=== PATIENT | male | born 1980 | race Caucasian/White ===

== ENCOUNTER 2017-03-14 20:29 | Emergency (ER) | payer OTHER ==
[~2017-03-14] VITALS: Ht 177.8 cm; Wt 96.7 kg
[2017-03-14 23:31] LABS: HEMATOCRIT 43.3 % (38.0-50.0); MCH 31.2 PG (29.0-34.0); MCHC 34.2 G/DL (30.0-36.0); MCV 91.2 FL (86-99); MEAN PLAT.VOLUME 9.7 uM^3 (9.0-12.4); PLATELET COUNT 306 K/uL (156-360); RBC DIS.WIDTH-CV 13.1 % (11.8-14.6); RBC DIS.WIDTH-SD 44.4 % (39-53); RED BLOOD COUNT 4.75 M/uL (4.00-5.50); WHITE BLOOD COUNT 14.7 K/uL (4.1-10.2)
[2017-03-14 23:42] LABS: CHLORIDE 102 mEq/L (99-109); POTASSIUM 3.6 mEq/L (3.7-5.4); SODIUM 135 mEq/L (136-147)
[2017-03-14 23:44] LABS: GLUCOSE 114 mg/dL (70-99)
[2017-03-14 23:45] LABS: ANION GAP 10 MEQ/L (2-14)
[2017-03-14 23:48] LABS: GFR ESTIMATE (CALCULATED) > 59 mL/min/; UREA NITROGEN (BUN) 17 mg/dL (9-23)
[2017-03-15] MEDS ORDERED: EPIPEN ADU0.3 MG/0.3 IM (00:40)
[2017-03-15] MEDS ORDERED: PREDNISONE10 MG PO (00:40)
[2017-03-15] MEDS ORDERED: BENADRYL50 MG PO (00:41)
[2017-03-15 00:54] VITALS: BP 112/58
== END 2017-03-15 00:56 | disposition home or self-care (01) ==
LOC: RME 20:29 → EME 20:29 → RME 03-15 00:56
PROVIDERS: Physician Assistant
DX: T63.441A Toxic effect of venom of bees, accidental (unintentional), initial encounter (principal); L50.9 Urticaria, unspecified; Z91.030 Bee allergy status; Z88.0 Allergy status to penicillin; F17.200 Nicotine dependence, unspecified, uncomplicated
CPT/HCPCS: 80048; 85027; 94640; 99281; 99285; J1200; J2930; J7030; S0028